=== PATIENT | female | born 1995 | race Two or more races ===

== ENCOUNTER → 2020-10-06 | Outpatient (REF) | payer MEDICAID | LOC: M PLALAB 10:38 | PROVIDERS: ATTEND Obstetrics & Gynecology | DX: Q87.81 Alport syndrome (principal); Z53.9 Procedure and treatment not carried out, unspecified reason ==

== ENCOUNTER → 2020-10-08 | Outpatient (REF) | payer MEDICAID ==
[2020-10-08 14:27] LABS: TOTAL PROTEIN 24 HOUR URINE 805.9 MG/24HR (50-150); URINE TOTAL PROTEIN 39.8 MG/DL (0-12)
== END ==
LOC: M SFHCWAGY 10:03
PROVIDERS: ATTEND Obstetrics & Gynecology
DX: Q87.81 Alport syndrome (principal)

== ENCOUNTER → 2020-10-22 | Outpatient (CLI) | payer MEDICAID ==
--- NOTE | 2020-10-22 10:06 | REP ---
INDICATION: ANATOMY COMPARISON: None. TECHNIQUE: Transabdominal obstetrical ultrasound with color Doppler evaluation. FINDINGS: Examination demonstrates a single live intrauterine in breech presentation. motion is identified by technologist. Placenta is noted posterior and grade 0 without evidence for placenta previa or abruption. Amniotic fluid volume is normal. Cervix measures 3.7 cm in length and appears closed. Myomatous changes to the uterus cannot be excluded.. Gestational age by current measurements 19 weeks 5 days with MATILDE 03/13/2021. FHR equals 155 beats per minute. BPD: 4.3 cm at 19 weeks 0 days HC: 17.1 cm at 19 weeks 5 days AC: 14.2 cm at 19 weeks 4 days FL: 3.0 cm at 19 weeks 3 days HL: 3.2 cm at 20 weeks 6 days HC/AC: 1.20 Estimated weight 296 grams (33rdpercentile). Anatomical assessment demonstrates normal structures including cranium, choroid plexus, cavum, cerebellum/posterior fossa, facial features, lungs, diaphragm, stomach, cord insertion/three-vessel cord, kidneys/bladder, spine, and extremities. IMPRESSION: 1. Single live intrauterine in breech presentation demonstrating appropriate estimated weight. 2. Limited evaluation of the cardiac ventricular outflow tracts including 2 echogenic foci in the left cardiac ventricle may warrant follow-up examination. 3. Myomatous changes to the uterus cannot be excluded. <Electronically signed by Leonides Templeton > 10/22/20 [id number]
== END ==
LOC: M WHC 08:12
PROVIDERS: ATTEND Obstetrics & Gynecology
DX: Z36.89 Encounter for other specified antenatal screening (principal); Z3A.19 19 weeks gestation of pregnancy

== ENCOUNTER → 2020-11-03 | Outpatient (CLI) | payer MEDICAID, OTHER | LOC: M PLALAB 08:34 | PROVIDERS: ATTEND Advanced Practice Midwife | DX: O28.3 Abnormal ultrasonic finding on antenatal screening of mother (principal); O28.5 Abnormal chromosomal and genetic finding on antenatal screening of mother ==

== ENCOUNTER → 2020-11-18 | Outpatient (CLI) | payer MEDICAID, OTHER ==
--- NOTE | 2020-11-18 09:17 | REP ---
INDICATION: F/U ANATOMY. COMPARISON: 10/22/2020. TECHNIQUE: Real-time sonographic evaluation of the gravid uterus performed. FINDINGS: Estimated gestational age is23 weeks 4 days, EDC 03/13/2021. Today's measurements indicate appropriate growth. Presentation: Breech Placenta posterior, grade 1, without evidence of placenta previa. heart rate is recorded at 156 beats per minute. Amniotic fluid is subjectively normal. Closed cervical length is measured at 4.1 cm. Biometry chart: BPD: 56 mm, 23 weeks 1 days, 37th percentile. HC: 216 mm, 23 weeks 5 days, 53rd percentile AC: 201 mm, 24 weeks 5 days, 74th percentile Femur length: 42 mm, 23 weeks 6 days, 56th percentile HC to AC ratio: 1.07, normal range 1.03-1.22. Estimated weight: 671g, 72nd percentile. The four-chamber heart and ventricular outflow tracts are visualized. Two echogenic foci in the left ventricle of the heart are likely related to chordae tendineae. In the anterior uterus a suspected fibroid measures 3.1 x 1.6 x 1.9 cm. IMPRESSION: Viable single intrauterine gestation as above. <Electronically signed by Michele Peacock > 11/18/20 [id number]
== END ==
LOC: M WHC 07:50
PROVIDERS: ATTEND Advanced Practice Midwife
DX: O32.1XX0 Maternal care for breech presentation, not applicable or unspecified (principal); Z36.2 Encounter for other antenatal screening follow-up; Z3A.23 23 weeks gestation of pregnancy

== ENCOUNTER → 2020-12-01 | Outpatient (REF) | payer OTHER ==
[2020-12-01 10:32] LABS: HEMATOCRIT 33.3 % (36.0-47.0); HEMOGLOBIN 10.4 g/dl (12.0-15.5); MEAN CORPUSCULAR HGB CONC 31.2 g/dl (32.0-36.5); MEAN CORPUSCULAR VOLUME 92.8 fl (80.0-96.0); PLATELET COUNT, AUTOMATED 204 10^3/uL (150-450); RED BLOOD COUNT 3.59 10^6/uL (4.00-5.40)
== END ==
LOC: M PLALAB 08:34
PROVIDERS: ATTEND Advanced Practice Midwife
DX: Z36.89 Encounter for other specified antenatal screening (principal); Z3A.00 Weeks of gestation of pregnancy not specified

== ENCOUNTER → 2020-12-05 | Outpatient (CLI) | payer OTHER | LOC: M LAB 08:20 | PROVIDERS: ATTEND Advanced Practice Midwife | DX: O99.810 Abnormal glucose complicating pregnancy (principal); Z3A.00 Weeks of gestation of pregnancy not specified ==

== ENCOUNTER → 2021-02-05 | Outpatient (CLI) | payer OTHER ==
[2021-02-05 11:29] LABS: HEMATOCRIT 34.6 % (36.0-47.0); HEMOGLOBIN 11.5 g/dl (12.0-15.5); MEAN CORPUSCULAR HGB CONC 33.2 g/dl (32.0-36.5); MEAN CORPUSCULAR VOLUME 90.3 fl (80.0-96.0); PLATELET COUNT, AUTOMATED 158 10^3/uL (150-450); RED BLOOD COUNT 3.83 10^6/uL (4.00-5.40); WHITE BLOOD COUNT 5.4 10^3/uL (4.0-10.0)
[2021-02-05 11:55] LABS: URINE TOTAL PROTEIN 122.5 MG/DL (0-12)
[2021-02-05 13:24] LABS: ALT/SGPT 28 U/L (12-78); BILIRUBIN,TOTAL 0.2 MG/DL (0.2-1.0); CREATININE FOR GFR 0.58 MG/DL (0.55-1.30); GLOMERULAR FILTRATION RATE > 60.0 (>60); LDH LACTATE DEHYDROGENASE 158 U/L (84-246); URIC ACID 4.4 MG/DL (2.6-6.0)
[2021-02-05 14:03] LABS: TOTAL PROTEIN 24 HOUR URINE 1592.5 MG/24HR (50-150)
== END ==
LOC: M PLALAB 08:39
PROVIDERS: ATTEND Advanced Practice Midwife
DX: O16.3 Unspecified maternal hypertension, third trimester (principal); Z3A.00 Weeks of gestation of pregnancy not specified

== ENCOUNTER → 2021-02-06 | Outpatient (CLI) | payer OTHER ==
--- NOTE | 2021-02-06 13:51 | REP ---
INDICATION: PREG INCREASED HTN. COMPARISON: Comparison study November 18, 2020.. TECHNIQUE: Transabdominal obstetric sonography. Limited study. FINDINGS: Scanning through the gravid uterus demonstrates a viable single intrauterine gestation in a vertex lie. heart rate is recorded at 142 beats per minute. A posterior fundal grade 1 placenta is seen without evidence of previa. Amniotic fluid is subjectively normal. Closed cervical length measured transabdominally is 3.7 cm. AMY is normal at 14.7 cm. Biophysical profile score is 8 out of a possible 8. SD ratio in the umbilical cord artery by Doppler is normal at 2.61. There is a 3.2 cm anterior myometrial hypoechoic area suggesting a fibroid again seen unchanged. IMPRESSION: Limited obstetric sonography as above. Biophysical profile score 8/8. <Electronically signed by Octavio Joiner > 02/06/21 [id number]
== END ==
LOC: M RAD 13:09
PROVIDERS: ATTEND Advanced Practice Midwife
DX: O13.3 Gestational [pregnancy-induced] hypertension without significant proteinuria, third trimester (principal)

== ENCOUNTER → 2021-02-10 | Outpatient (REF) | payer OTHER | LOC: M SFHCWAGY 17:07 | PROVIDERS: ATTEND Obstetrics & Gynecology | DX: O13.3 Gestational [pregnancy-induced] hypertension without significant proteinuria, third trimester (principal) ==

== ENCOUNTER → 2021-02-10 | Outpatient (CLI) | payer OTHER ==
--- NOTE | 2021-02-10 12:20 | REP ---
INDICATION: BPP/GROWTH/HYPERTENSION. COMPARISON: 02/06/2021. TECHNIQUE: Real-time sonographic evaluation of the gravid uterus performed. FINDINGS: Estimated gestational age is35 weeks 4 days, EDC 03/13/2021. Presentation: Cephalic Placenta posterior, grade 1, without evidence of placenta previa. heart rate is recorded at 133 beats per minute. Amniotic fluid is subjectively normal. AMY 15.6, normal range 7.6-24.9. Biophysical profile score 8/8. SD ratio umbilical artery 1.97, normal range 1.66-3.54. RI 0.49, normal 0.45-0.71. IMPRESSION: Viable single intrauterine gestation as above. <Electronically signed by Michele Peacock > 02/10/21 [id number]
== END ==
LOC: M WHC 10:57
PROVIDERS: ATTEND Advanced Practice Midwife
DX: O13.3 Gestational [pregnancy-induced] hypertension without significant proteinuria, third trimester (principal); Z3A.35 35 weeks gestation of pregnancy

== ENCOUNTER 2021-02-14 18:09 | Emergency (ER) | payer OTHER ==
[~2021-02-14] VITALS: Ht 157.5 cm; Wt 98.6 kg
[2021-02-14 18:09] VITALS: BP 138/80
[2021-02-14 21:09] LABS: BASO % 0.2 % (0.0-1.0); EOS # 0.1 10^3/uL (0.0-0.5); EOS % 1.1 % (0.0-3.0); HEMATOCRIT 33.4 % (36.0-47.0); HEMOGLOBIN 11.2 g/dl (12.0-15.5); LYMPH # 1.3 10^3/uL (1.5-5.0); LYMPH % 20.1 % (24.0-44.0); MEAN CORPUSCULAR HEMOGLOBIN 30.3 pg (27.0-33.0); MEAN CORPUSCULAR HGB CONC 33.5 g/dl (32.0-36.5); MEAN CORPUSCULAR VOLUME 90.3 fl (80.0-96.0); MONO # 0.6 10^3/uL (0.0-0.8); MONO % 9.9 % (2.0-8.0); NEUTROPHILS # 4.4 10^3/uL (1.5-8.5); NEUTROPHILS % 68.2 % (36.0-66.0); PLATELET COUNT, AUTOMATED 174 10^3/uL (150-450); WHITE BLOOD COUNT 6.5 10^3/uL (4.0-10.0)
[2021-02-14 21:31] LABS: ALBUMIN 2.6 GM/DL (3.2-5.2); ALT/SGPT 24 U/L (12-78); BILIRUBIN,TOTAL 0.2 MG/DL (0.2-1.0); BLOOD UREA NITROGEN 11 MG/DL (7-18); CALCIUM LEVEL 9.1 MG/DL (8.5-10.1); CARBON DIOXIDE LEVEL 24 MEQ/L (21-32); CHLORIDE LEVEL 111 MEQ/L (98-107); CPK CREATINE PHOSPHOKINASE 101 U/L (26-192); CREATININE FOR GFR 0.59 MG/DL (0.55-1.30); GLOMERULAR FILTRATION RATE > 60.0 (>60); GLUCOSE, FASTING 90 MG/DL (70-100); POTASSIUM SERUM 4.2 MEQ/L (3.5-5.1); SODIUM LEVEL 142 MEQ/L (136-145); TOTAL PROTEIN 6.3 GM/DL (6.4-8.2)
--- NOTE | 2021-02-14 21:39 | ECGEPIP ---
[facility] - ED Test Date: 2021-02-14 Pat Name: ROSALES COTTON Department: Room: - Gender: Female Cook Starch: : 1995 Requested By: ELVIS VIDES Order Number: [id number] Reading MD: Ginette Alvarez Measurements Intervals [place] Rate: 92 P: 36 KS: 144 QRS: 15 QRSD: 74 T: 18 QT: 336 QTc: 415 Interpretive Statements Normal sinus rhythm Minimal voltage criteria for LVH, may be normal variant ( R in aVL ) No prior Electronically Signed on 02-14-2021 21:39:24 EDT by Ginette Alvarez
== END 2021-02-14 22:38 | disposition home or self-care (01) ==
LOC: M ED 18:09
DX: O26.93 Pregnancy related conditions, unspecified, third trimester (principal); O99.013 Anemia complicating pregnancy, third trimester; Z3A.00 Weeks of gestation of pregnancy not specified

== ENCOUNTER → 2021-02-18 | Outpatient (CLI) | payer OTHER ==
--- NOTE | 2021-02-18 15:58 | REP ---
INDICATION: GROWTH/BPP/HYPERTENSION. COMPARISON: None. TECHNIQUE: Transabdominal scanning FINDINGS: Multiple ultrasonographic images of the gravid uterus shows a single living intrauterine gestation in the cephalic presentation. Doppler interrogation of the heart shows a heart rate of 138 beats per minute. The subjective amniotic fluid volume is within normal limits with a calculated amniotic fluid index is 19.1 within expected range 7.6-24.7. The placenta is posterior not low lying. Secondary to the low position of the head the cervical length could only be estimated at 4.2 cm and appeared closed. Doppler interrogation of the umbilical artery shows an A\B ratio of 1.91 with a 2nd reading of 2.10 both within the normal range. biophysical profile score is 2 for breathing, 2 for movement, 2 for tone, and 2 for amniotic fluid volume giving a sum total of 8/8. BPD: 9.4 cm 38 weeks 3 days AC: 33.6 cm 38 weeks 3 days AC: 35.1 cm 39 weeks 0 day FL: 7.5 cm 38 weeks 1 day The estimated weight is 3555 g which is greater than the 97th percentile for a 36 week 3 day gestational age. IMPRESSION: Limited OB ultrasound as described above showing a single living intrauterine gestation with an estimated gestational age of 38 weeks 1 day via composite criteria and an estimated date of delivery of 03/03/2021 by today's exam. <Electronically signed by Joselito David > 02/18/21 [id number]
== END ==
LOC: M WHC 14:21
PROVIDERS: ATTEND Advanced Practice Midwife
DX: O13.3 Gestational [pregnancy-induced] hypertension without significant proteinuria, third trimester (principal); Z3A.38 38 weeks gestation of pregnancy

== ENCOUNTER 2021-02-22 07:47 | Inpatient (IN) | payer OTHER, SELFPAY ==
[~2021-02-22] VITALS: Ht 157.5 cm; Wt 99.9 kg
[2021-02-22] VITALS (12 sets, daily range): BP systolic 112–130; BP diastolic 56–77
[2021-02-22] MEDS ORDERED: PRENTAB9 PO (08:17)
[2021-02-22] MEDS ORDERED: FERR324T21 PO (08:24)
[2021-02-22] MEDS ORDERED: HOME MED LIST COMPLETE! XX SCH (08:25)
[2021-02-22 09:32] LABS: HEMATOCRIT 33.3 % (36.0-47.0); MEAN CORPUSCULAR HEMOGLOBIN 30.1 pg (27.0-33.0); MEAN CORPUSCULAR VOLUME 91.2 fl (80.0-96.0); PLATELET COUNT, AUTOMATED 159 10^3/uL (150-450); RED BLOOD COUNT 3.65 10^6/uL (4.00-5.40); WHITE BLOOD COUNT 4.9 10^3/uL (4.0-10.0)
[2021-02-22] MEDS: LACTATED RINGER'S 1000 ML IV STA (10:12)
[2021-02-22] MEDS ORDERED: LIDOCAINE 1% MDV 20ML VIAL INFIL PRN (10:15)
[2021-02-22] MEDS ORDERED: OXYTOCIN DRIP 30 UNITS in IV 1 EA IV PRN (10:15)
[2021-02-22] MEDS: LR 1,000 ML IV SCH ×2 (10:15→18:15)
[2021-02-22] MEDS ORDERED: miSOPROStol 50MCG 1/2 TABLET PV ONE (10:20)
[2021-02-22] MEDS ORDERED: BUTORPHANOL 2 MG/ML INJ (J0595) IV PRN (12:35)
[2021-02-22 13:39] LABS: TOTAL PROTEIN,RANDOM URINE 405.7 MG/DL (0.0-12.0)
[2021-02-22] MEDS: miSOPROStol 50MCG 1/2 TABLET PO SCH ×3 (14:30→22:26)
--- NOTE | 2021-02-22 16:50 | HPEPDOC ---
Obstetrical History & Physical General Date of Admission Feb 22, 2021 at 07:47 History of Present Illness Danna is a 25yo with SIUP at 37w0d by lmp presenting for IOL for GHTN. diagnosis was made 02/06 based on mild range bp's in office. She has no complaints. good movement, no vaginal bleeding/LOF/ctx. 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), obesity Surgical History: Denies/None Family History Significant Family History: Other (Alport Syndrome) Social History Marital Status: Family situation: Spouse/partner home Psychosocial History: No pertinent psych hx * Smoker: non-smoker Alcohol: Denies Drugs: denies Imunizations Tdap status: current Allergies Coded Allergies: No Known Allergies (Unverified , 02/22/21) Medications Scheduled No.137/Iron/Folic Acd ( Vitamin Tablet) 1 Each Tablet, 1 TAB PO DAILY Miscellaneous Medications Ferrous Gluconate (Ferrous Gluconate) 324 Mg Tablet, 324 MG PO Physical Examination Physical Examination GENERAL: Alert and oriented times three. ABDOMEN: Gravid and non-tender to touch. Dependent edema of abdomen (pannus) noted FETUS: Is vertex (VTX) by TAUS EXTREMITIES: No edema of BLE Vital Signs/I&O Vital Signs Date Time Temp Pulse Resp B/P (MAP) Pulse Ox O2 Delivery O2 Flow Rate FiO2 02/22/21 15:42 97.9 02/22/21 15:33 96 18 124/77 (93) Room Air Laboratory Data 24H LABS Laboratory Tests 2 02/22/21 09:08: Nucleated Red Blood Cells % (auto) 0.0, Hepatitis B Surface Antigen NEGATIVEL, HIV (1&2) Antibody NEGATIVE, HIV P24 Antigen NEGATIVE 02/22/21 12:50: Urine Random Creatinine 279.0, Urine Random Total Protein 405.7H 02/22/21 13:25: Serology Scanned Report Hepatitis B Testing CBC/BMP Laboratory Tests 02/22/21 09:08 Pertinent Laboratoy Data Blood Type: O+ RBC Antibody Screen: Negative HIV: Negative Hepatitis B: Negative Rapid Plasma Reagin: Nonreactive Rubella: Nonreactive Chlamydia/Gonorrhea: Negative Group B Streptococcus: Negative Glucose Tolerance Test: 140 (3hr 90/162/138/108) Diag/Inter Therapy Sickle cell screen negative, CF screen negative, panorama low risk male Anatomy Ultrasound Ultrasound Date: Nov 18, 2020 Placenta Location: Posterior Normal Anatomy: Yes (EIF noted) Placenta Previa: No Other Ultrasounds Maternal fibroid noted on anatomy f/u 3x2cm Steroid Therapy Steroid Therapy: No Vaginal Examination Dilation: None Effacement: other (0%) Station: -3 Cervical Consistency: Firm Cervical Position: Posterior Presentation: Cephalic presentation (by TAUS) Assessment Heart Rate (FHR): 130 Variability: Moderate Accelerations: Positive Decelerations: None Tocometer Contractions: No Assessment/Plan Assessment Danna is a 25yo with SIUP at 37w0d by lmp presenting for IOL for GHTN. BP is normotensive and other vitals wnl. Exam benign. Cat I FHRT. Cephalic by TAUS. SCE cl/thick/high. GBS negative. PMhx and PNC significant for: GHTN, obesity, trichomonas in 1st trimester treated, transfer in at 17wk from [facility] with records, anemia, Rubella n on-immune, failed 1hr glucola (140) and passed 3hr GTT Plan Admit and orient. Mattress Maker and consent. Diet: regular until active labor Group B Streptococcus (GBS) negative Labs and intravenous (IV) per unit protocol. Include urine prot:creat Counseled on cytotec, adams bulb, Pitocin and induction of labor (IOL). Lactated Ringers (LR): Bolus 800 mL, then at 125 mL/hr prior to epidural if desired Induction begun with 50mcg PV cytotec x1 and will continue q4hr with 50mcg PO cytotec until able to place cervical adams bulb Rosa Avendano MD Feb 22, 2021 16:44
[2021-02-23] VITALS (53 sets, daily range): BP systolic 101–151; BP diastolic 57–91
[2021-02-23] MEDS: miSOPROStol 50MCG 1/2 TABLET PO SCH (02:35)
[2021-02-23] MEDS ORDERED: PROMETHAZINE INJ 25 MG/ML VIAL (J2550) IV ONE (09:10)
[2021-02-23] MEDS ORDERED: OXYTOCIN DRIP 30 UNITS in IV 1 EA IV SCH (09:15)
--- NOTE | 2021-02-23 10:02 | IPNPDOC ---
Obstetrical Progress Note Date of Service Feb 23, 2021 Subjective Patient is feeling her contractions. Objective Vital Signs Date Time Temp Pulse Resp B/P (MAP) Pulse Ox O2 Delivery O2 Flow Rate FiO2 02/23/21 09:26 97.6 82 16 124/74 Room Air Assessment Heart Rate (FHR): 130 Variability: Moderate Accelerations: Positive Decelerations: None Heart Rate Tracing: Category I Tocometer Contractions: Yes Sterile Vaginal Examination Dilation: 4 cm Effacement (%): 50% Station: -2 Cervical Consistency: Soft Cervical Position: Anterior Postion/Presentation: Cephalic presentation Assessment and Plan EGA at Admission: 37 Weeks & Days 37.1 weeks gestation today Status: Reassuring Group B Streptococcus: Negative Anticipate: Vaginal Delivery Additional Comments Mclaughlin bulb placed with the use of Stadol and Phenergan for pain management. 70/40 placed. Tolerated procedure well with pain medication. Will start IV Pitocin. JEFFERY ORDOÑEZ CNM Feb 23, 2021 10:02
[2021-02-23] MEDS: LR 1,000 ML IV SCH ×2 (10:09→10:15)
[2021-02-23 12:16] LABS: HEMATOCRIT 35.6 % (36.0-47.0); HEMOGLOBIN 11.9 g/dl (12.0-15.5); MEAN CORPUSCULAR HEMOGLOBIN 30.2 pg (27.0-33.0); MEAN CORPUSCULAR HGB CONC 33.4 g/dl (32.0-36.5); MEAN CORPUSCULAR VOLUME 90.4 fl (80.0-96.0); PLATELET COUNT, AUTOMATED 161 10^3/uL (150-450); RED BLOOD COUNT 3.94 10^6/uL (4.00-5.40); WHITE BLOOD COUNT 6.7 10^3/uL (4.0-10.0)
[2021-02-23] MEDS ORDERED: FENTANYL 2MCG/ML ROPIVACAINE 0.2% IN 0.9% NACL 100ML IVBAG As Ordered ONE (17:23)
[2021-02-23] MEDS ORDERED: NALOXONE INJ 0.4MG/1ML VIAL (J2310 PER 1MG) IV PRN (18:45)
[2021-02-23] MEDS ORDERED: REFRIGERATOR IV KEYS XX PRN (18:45)
[2021-02-23] MEDS ORDERED: EPIDURAL COMMENT XX SCH (18:45)
[2021-02-23] MEDS ORDERED: diphenhydrAMINE 50MG/ML VIAL (J1200) IV PRN (18:45)
[2021-02-23] MEDS ORDERED: ePHEDrine SULFATE 25 MG/5 ML(5MG/ML) SYRINGE IV PRN (18:45)
[2021-02-23] MEDS ORDERED: ONDANSETRON 4MG/2ML VIAL IV PRN (18:45)
[2021-02-23] MEDS ORDERED: LACTATED RINGER'S 1000 ML IV PRN (18:45)
[2021-02-23] MEDS ORDERED: EPIDURAL/PCA KEYS XX PRN (18:45)
[2021-02-23] MEDS: FENTANYL/ROPIVACAINE/NACL BAG 100 ML EPIDURAL SCH (19:03)
--- NOTE | 2021-02-23 19:21 | IPNPDOC ---
Obstetrical Progress Note Date of Service Feb 23, 2021 Subjective Patient is comfortable with her epidural. Objective Vital Signs Date Time Temp Pulse Resp B/P (MAP) Pulse Ox O2 Delivery O2 Flow Rate FiO2 02/23/21 15:50 109 135/88 (104) 02/23/21 12:10 97.9 16 02/23/21 09:36 Room Air Assessment Heart Rate (FHR): 150 Variability: Moderate Accelerations: Positive Decelerations: None Heart Rate Tracing: Category I Tocometer Contractions: Yes Frequency: regular Sterile Vaginal Examination Dilation: 5 cm Effacement (%): 50% Station: -2 (ballottable between contractions) Cervical Consistency: Soft Cervical Position: Anterior Postion/Presentation: Cephalic presentation Assessment and Plan Age: 25 : 1 Term: 0 Pre-term: 0 Abortions: 0 Livin EGA at Admission: 37 Weeks & Days 37.1 weeks Status: Reassuring Group B Streptococcus: Negative Anticipate: Vaginal Delivery Additional Comments IV Pitocin at 14 mu/min. Mclaughlin bulb out at 1528. Will reevaluate in a few hours if no SROM and consider AROM. JEFFERY ORDOÑEZ CNM Feb 23, 2021 19:21
--- NOTE | 2021-02-23 22:12 | IPNPDOC ---
Obstetrical Progress Note Date of Service Feb 23, 2021 Subjective Patient comfortable with her epidural. Objective Vital Signs Date Time Temp Pulse Resp B/P (MAP) Pulse Ox O2 Delivery O2 Flow Rate FiO2 02/23/21 18:55 101 133/73 (93) 02/23/21 12:10 97.9 16 02/23/21 09:36 Room Air Assessment Heart Rate (FHR): 150 Variability: Moderate Accelerations: Positive Decelerations: None Heart Rate Tracing: Category I Tocometer Contractions: Yes Frequency: regular Sterile Vaginal Examination Dilation: 6 cm Effacement (%): other (75%) Station: -1 Cervical Consistency: Soft Cervical Position: Anterior Postion/Presentation: Cephalic presentation Assessment and Plan Age: 25 Weeks & Days 37.1 weeks gestation Status: Reassuring Group B Streptococcus: Negative Anticipate: Vaginal Delivery Additional Comments AROM to a large amount of clear fluid. IV Pitocin at 16/mu/min. JEFFERY ORDOÑEZ CNM Feb 23, 2021 22:12
[2021-02-24] VITALS (38 sets, daily range): BP systolic 115–162; BP diastolic 58–99
[2021-02-24] MEDS: LR 1,000 ML IV SCH ×5 (01:09→19:30)
[2021-02-24] MEDS ORDERED: FENTANYL 2MCG/ML ROPIVACAINE 0.2% IN 0.9% NACL 100ML IVBAG As Ordered ONE (01:21)
[2021-02-24] MEDS: FENTANYL/ROPIVACAINE/NACL BAG 100 ML EPIDURAL SCH (01:33)
[2021-02-24] MEDS ORDERED: BICITRA 30ML SOLN UDC PO ONE (06:10)
[2021-02-24] MEDS ORDERED: ceFAZolin SOD 2 GM in IV 1 EA IV ONE (06:10)
[2021-02-24] MEDS ORDERED: AZITHROMYCIN INJ 500 MG, VIAL MATE ADAPTER 1 EACH in NS 250 ML IV ONE (06:10)
--- NOTE | 2021-02-24 06:16 | IPNPDOC ---
Obstetrical Progress Note Date of Service Feb 24, 2021 Subjective Patient uncomfortable with her contractions. Objective Vital Signs Date Time Temp Pulse Resp B/P (MAP) Pulse Ox O2 Delivery O2 Flow Rate FiO2 02/24/21 04:27 96 18 129/67 (87) 02/24/21 04:13 98.1 02/23/21 09:36 Room Air Assessment Heart Rate (FHR): 140 Variability: Moderate Accelerations: Positive Decelerations: None Heart Rate Tracing: Category I Tocometer Contractions: Yes Frequency: other (6-10 minutes) Sterile Vaginal Examination Dilation: 6 cm Effacement (%): other (75%) Station: -1 Cervical Consistency: Soft Cervical Position: Anterior Assessment and Plan Status: Reassuring Anticipate: Section Additional Comments No cervical change and no descent since AROM. Reviewed that Dr. Frankel has been notified and his recommendation is for section. Patient agrees with plan and accepting of section. Will proceed with section. JEFFERY ORDOÑEZ CNM Feb 24, 2021 06:16
[2021-02-24 07:07] LABS: HEMATOCRIT 35.6 % (36.0-47.0); HEMOGLOBIN 11.6 g/dl (12.0-15.5); MEAN CORPUSCULAR HEMOGLOBIN 29.6 pg (27.0-33.0); MEAN CORPUSCULAR HGB CONC 32.6 g/dl (32.0-36.5); MEAN CORPUSCULAR VOLUME 90.8 fl (80.0-96.0); PLATELET COUNT, AUTOMATED 167 10^3/uL (150-450); RED BLOOD COUNT 3.92 10^6/uL (4.00-5.40); WHITE BLOOD COUNT 12.2 10^3/uL (4.0-10.0)
[2021-02-24] MEDS ORDERED: NALOXONE INJ 0.4MG/1ML VIAL (J2310 PER 1MG) IV PRN ×2 (08:05)
[2021-02-24] MEDS ORDERED: diphenhydrAMINE 50MG/ML VIAL (J1200) IV PRN (08:05)
[2021-02-24] MEDS ORDERED: ONDANSETRON 4MG/2ML VIAL IV PRN ×3 (08:05→09:45)
[2021-02-24] MEDS ORDERED: METOCLOPRAMIDE INJ 10MG/2ML VIAL (J2765 PER 1) IV PRN (08:05)
[2021-02-24] MEDS ORDERED: NALBUPHINE HCL 10 MG/ML AMP (J2300) IV PRN (08:05)
[2021-02-24] MEDS ORDERED: MORPHINE PRES-FREE INJ 10 MG/10 ML VIAL (J2274) As Ordered ONE (08:15)
[2021-02-24] MEDS ORDERED: KETOROLAC 60MG 2ML VIAL As Ordered ONE (08:15)
[2021-02-24] MEDS ORDERED: dexameTHASONE 4 MG/ML 1ML VIAL (J1100 PER 1MG) As Ordered ONE (08:15)
[2021-02-24] MEDS ORDERED: ONDANSETRON 4MG/2ML VIAL As Ordered ONE (08:15)
[2021-02-24] MEDS ORDERED: METOCLOPRAMIDE INJ 10MG/2ML VIAL (J2765 PER 1) As Ordered ONE (08:15)
[2021-02-24] MEDS ORDERED: OXYTOCIN 30 UNITS IN 0.9% NaCl 500ML IV BAG (J2590) As Ordered ONE ×3 (08:15→09:07)
[2021-02-24] MEDS ORDERED: PHENYLephrine 500MCG 5ML (100MCG/ML) SYRINGE As Ordered ONE (08:15)
[2021-02-24] MEDS ORDERED: ACETAMINOPHEN 1000MG 100ML IV BTL (OFIRMEV) (J0131 PER 10MG) As Ordered ONE (08:40)
--- NOTE | 2021-02-24 09:14 | ROOPDOC ---
[facility] Report Of Operation Report of Operation DATE OF PROCEDURE: 02/24/2021 PREPROCEDURE DIAGNOSES: Arrest of dilation, 37+2 weeks gestation, gestational hypertension POSTPROCEDURE DIAGNOSES: Same PROCEDURE: Primary low transverse section SURGEON: Lloyd Frankel DO FACOG PRINTED CIRCUIT PHOTOGRAPHER: Leana Sahu CNM (Essential role in retraction, extraction, and closure of all tissue layers) ANESTHESIA: Spinal w/ Duramorph ESTIMATED BLOOD LOSS: 600 mL. IV FLUIDS: 1300 mL LR URINE OUTPUT: 300 mL COMPLICATIONS: None. PREOPERATIVE ANTIBIOTICS: Ancef 2g IV x 1, Azithromycin 500mg IV. COMPLICATIONS: none DATA: Apgars 8 and 9. Birthweight 3420 g, 7 lbs 9 oz. SPECIMENS: none PRIMARY INDICATION FOR : Arrest of dilation DESCRIPTION OF PROCEDURE: The patient was counseled on the risks, benefits, indications and alternatives of the procedure. Informed consent was obtained. She was taken to the operating room with IV running and placed on the operating table in the dorsal supine position with a leftward tilt. Regional anesthesia was found to be adequate. Sequential compression devices were placed on the lower extremities. A Mclaughlin catheter was placed under sterile conditions. She was prepared and draped in normal sterile fashion. A time out was performed per protocol. Regional anesthesia was again found to be adequate. A Pfannenstiel skin incision was made with the 10 blade. The 10 blade was used to dissect down to the level of the rectus sheath fascia. The rectus sheath pressure was incised midline and this was extended bilaterally with Peralta scissors , and manual stretch. The rectus muscle bellies were dissected off the rectus sheath fascia superiorly and inferiorly using both sharp and blunt dissection. The midline was identified. The peritoneum was identified and entered digitally. The peritoneal opening was extended with manual stretch. The Mobius retractor was placed. The vesicouterine peritoneum was dissected with Metzenbaum scissors to create the bladder flap. A low transverse uterine incision was made with the 10 blade. This was extended with manual stretch. The amniotic sac was punctured, and clear fluid was noted. The baby delivered through the hysterotomy without difficulty. The Mobius ret ractor was removed from the abdomen. The cord was doubly clamped and cut, and the baby was handed off to awaiting care. data shown above. The placenta was removed manually. The uterus was exteriorized. the intrauterine cavity was cleared of all clot and debris. The hysterotomy was closed with 0 Vicryl in running locked fashion. This was reinforced with a second imbricating layer using 0 Vicryl in running fashion. Excellent hemostasis of the hysterotomy was noted. The pelvis was irrigated and the fluid suctioned. The uterus was replaced back into the abdomen. The peritoneum was closed with 3-0 Vicryl running fashion. The rectus muscle bellies were reapproximated with interrupted stitches using 3-0 Vicryl. The rectus muscles bellies were hemostatic. The rectus sheath fascia was closed with 0 Vicryl running fashion. The subcutaneous layer was irrigated and the f luid suctioned. Small bleeding vessels were cauterized with Bovie. Excellent hemostasis was noted. The subcutaneous layer was reapproximated with 3-0 Vicryl running fashion. Skin was closed with 3-0 Monocryl in subcuticular fashion. An Optifoam bandage was placed over the closed incision. Sponge, needle and instrument counts were correct per protocol throughout the procedure. The patient tolerated the entire procedure very well. She was transferred to the PACU in stable condition. DO TRENTON Moulton JONATHAN R. DO Feb 24, 2021 09:14
[2021-02-24] MEDS ORDERED: OXYTOCIN DRIP 30 UNITS in IV 1 EA IV SCH (09:15)
[2021-02-24] MEDS ORDERED: RHOGAM 300 MCG (1500 IU) INJ (J2790) IM SCH (09:15)
[2021-02-24] MEDS ORDERED: PERCOCET 5MG/325MG TAB PO PRN (09:15)
[2021-02-24] MEDS ORDERED: SIMETHICONE 80MG CHEW TAB PO PRN (09:15)
[2021-02-24] MEDS ORDERED: ACETAMINOPHEN 500 MG TAB PO PRN (09:15)
[2021-02-24] MEDS ORDERED: MEASLES,MUMPS,RUBELLA VACCINE INJ (MMR-II) (90707) SC SCH (09:15)
[2021-02-24] MEDS ORDERED: PERCOCET PO (09:20)
[2021-02-24] MEDS ORDERED: IBUP80TA PO (09:20)
[2021-02-24] MEDS ORDERED: oxyCODONE 5MG TAB PO PRN (09:45)
[2021-02-24] MEDS ORDERED: fentaNYL 100 MCG/2 ML INJECTION (J3010) IV PRN (09:45)
[2021-02-24] MEDS: PRENATAL VITAMINS CHEWABLE TABLET PO SCH (10:49)
[2021-02-24] MEDS: DOCUSATE SODIUM 100MG CAPSULE PO SCH ×2 (10:49→21:02)
[2021-02-24 12:08] LABS: HEMATOCRIT 31.8 % (36.0-47.0); HEMOGLOBIN 10.6 g/dl (12.0-15.5); MEAN CORPUSCULAR HEMOGLOBIN 30.5 pg (27.0-33.0); MEAN CORPUSCULAR HGB CONC 33.3 g/dl (32.0-36.5); MEAN CORPUSCULAR VOLUME 91.4 fl (80.0-96.0); PLATELET COUNT, AUTOMATED 160 10^3/uL (150-450); RED BLOOD COUNT 3.48 10^6/uL (4.00-5.40); WHITE BLOOD COUNT 12.5 10^3/uL (4.0-10.0)
[2021-02-24 12:26] LABS: CREATININE FOR GFR 1.05 MG/DL (0.55-1.30); GLOMERULAR FILTRATION RATE > 60.0 (>60)
[2021-02-24] MEDS: KETOROLAC 30 MG/ML 1ML VIAL IV SCH ×2 (15:49→21:03)
[2021-02-24] MEDS: ENOXAPARIN 40MG/0.4ML SYRINGE (J1650 PER 10MG) SC SCH (15:50)
[2021-02-25] MEDS: KETOROLAC 30 MG/ML 1ML VIAL IV SCH (01:57)
[2021-02-25 02:00] VITALS: BP 116/63
[2021-02-25 06:00] VITALS: BP 118/69
[2021-02-25 07:39] LABS: HEMATOCRIT 28.6 % (36.0-47.0); HEMOGLOBIN 9.4 g/dl (12.0-15.5); MEAN CORPUSCULAR HEMOGLOBIN 30.1 pg (27.0-33.0); MEAN CORPUSCULAR HGB CONC 32.9 g/dl (32.0-36.5); MEAN CORPUSCULAR VOLUME 91.7 fl (80.0-96.0); PLATELET COUNT, AUTOMATED 154 10^3/uL (150-450); RED BLOOD COUNT 3.12 10^6/uL (4.00-5.40); WHITE BLOOD COUNT 12.1 10^3/uL (4.0-10.0)
[2021-02-25] MEDS: PERCOCET 5MG/325MG TAB PO PRN ×2 (08:06→20:13)
[2021-02-25] MEDS: DOCUSATE SODIUM 100MG CAPSULE PO SCH (08:06)
[2021-02-25] MEDS: PRENATAL VITAMINS CHEWABLE TABLET PO SCH (08:06)
[2021-02-25] MEDS ORDERED: DOCUSATE SODIUM 100MG CAPSULE PO PRN (08:35)
--- NOTE | 2021-02-25 08:35 | IPNPDOC ---
Progress Note Date of Service: Feb 25, 2021 Day#: 1 Progress Note SUBJECT: Status post PLTCS She has been ambulating, voiding spontaneously without issue and tolerating regular diet. Lochia decreasing/minimal. Pain is well-controlled. Incision bandage is clean/unsaturated. Denies headache, visual changes, right upper quadrant pain, shortness of breath or chest pain. OBJECTIVE: VITAL SIGNS: Within normal limits, afebrile. Alert and oriented times three. Abdomen: Fundus firm at U-2. Soft, NTTP. Incision bandage not soaked through ASSESSMENT: Status post uncomplicated PLTCS. Vitals within normal limits, afebrile, hemodynamically stable with no evidence of infection. PLAN: Discharge to home tomorrow Routine /postoperative advancement Postoperative instructions/precautions reviewed. Routine PP visit at 2 and 6 weeks in clinic. VS, I&O, 24H, Fishbone Vital Signs/I&O Vital Signs Date Time Temp Pulse Resp B/P (MAP) Pulse Ox O2 Delivery O2 Flow Rate FiO2 02/25/21 08:06 16 02/25/21 06:00 97.4 82 118/69 (85) 96 Room Air I&O- Last 24 Hours up to 6 AM 02/25/21 06:00 Intake Total 2978 ml Output Total 1600 ml Balance 1378 ml Laboratory Data 24H LABS Laboratory Tests 2 02/24/21 11:44: Nucleated Red Blood Cells % (auto) 0.0, Glomerular Filtration Rate > 60.0 02/25/21 07:13: Nucleated Red Blood Cells % (auto) 0.0 CBC/BMP Laboratory Tests 02/24/21 11:44 02/25/21 07:13 BRADLEY PEPE DO Feb 25, 2021 08:35
[2021-02-25] MEDS ORDERED: DOK1CAP4 PO (08:36)
[2021-02-25] MEDS: LR 1,000 ML IV SCH ×2 (09:15→16:58)
[2021-02-25 10:00] VITALS: BP 141/78
[2021-02-25] MEDS: IBUPROFEN 800 MG TAB PO SCH ×2 (11:22→18:21)
[2021-02-25 14:00] VITALS: BP 144/70
[2021-02-25] MEDS: ENOXAPARIN 40MG/0.4ML SYRINGE (J1650 PER 10MG) SC SCH (15:55)
[2021-02-25 18:00] VITALS: BP 120/67
[2021-02-25 22:00] VITALS: BP 126/73
[2021-02-26] MEDS: PERCOCET 5MG/325MG TAB PO PRN (01:07)
[2021-02-26] MEDS: LR 1,000 ML IV SCH ×2 (01:15→09:15)
[2021-02-26] MEDS: IBUPROFEN 800 MG TAB PO SCH ×2 (03:09→11:00)
[2021-02-26 06:00] VITALS: BP 110/64
--- NOTE | 2021-02-26 07:28 | DSES ---
DISCHARGE SUMMARY DATE OF ADMISSION: 02/22/2021 DATE OF DISCHARGE: 02/26/2021 DISCHARGE DIAGNOSIS: 1. Primary section postop day #2, stable for discharge. 2. Gestational hypertension, resolving. SURGEON: BRADLEY FRANKEL DO CUSTOMER OPERATIONS SPECIALIST: JEFFERY ORDOÑEZ CNM HISTORY: Danna is a 25-year-old 1 para 1-0-0-1 now who underwent a primary section on 02/24/2021 due to arrest of dilation following induction of labor for gestational hypertension. The surgery was uncomplicated. Estimated blood loss 600 ml. She delivered a live male, 7 pounds, 9 ounces, 3420 grams, Apgars were 8 and 9. Her postoperative course has been uncomplicated. She has been out of bed for self-care, edgar-care and infant care. She is tolerating p.o. fluids and a regular diet, voiding without difficulty and passing flatus. Her pain has been well-managed with p.o. pain medications. She is ready for discharge. OBJECTIVE: Temperature is 97.5, pulse is 85, respirations 18, BP 110/64. She is alert and oriented x3. CBC preoperatively on date of admission, 02/22/2021: Hemoglobin 11.0, hematocrit 33.3, and platelets 159,000. Postoperative CBC on 02/25/2021: Hemoglobin 9.4, hematocrit 28.6, platelets 154,000. She is alert and oriented x3. Breasts are soft and nontender. Fundus is firm at umbilicus. The incision is with Optifoam dressing in place. There is no drainage observed. The perineum is intact with lochia rubra scant. Bilateral lower extremities with +1 pitting edema. PLAN: Discharge the patient home. She is to follow-up at [facility] for a one week blood pressure check, a two week incision check and an eight week visit. E-prescriptions have been prescribed by Bradley Frankel to the patient's pharmacy for Ibuprofen and Percocet. I reviewed discharge instructions and provided written information regarding breast care, incision care, edgar-care, pelvic rest, activity and lifting restrictions, danger signs to report and access to her are provider. The patient and her family's questions have been answered and she desires discharge home.
[2021-02-26] MEDS: PRENATAL VITAMINS CHEWABLE TABLET PO SCH (09:24)
== END 2021-02-26 11:30 | disposition home or self-care (01) | DRG 540 ==
LOC: M LDI 07:47 → M OBS 02-24 10:35
PROVIDERS: ADMIT Obstetrics & Gynecology; ATTEND Obstetrics & Gynecology
PROC: 3E033VJ Introduction of Other Hormone into Peripheral Vein, Percutaneous Approach (ICD-10-PCS; 2021-02-22)
PROC: 10907ZC Drainage of Amniotic Fluid, Therapeutic from Products of Conception, Via Natural or Artificial Opening (ICD-10-PCS; 2021-02-23)
PROC: 10D00Z1 Extraction of Products of Conception, Low, Open Approach (ICD-10-PCS; principal; 2021-02-24 07:03)
DX: O13.4 Gestational [pregnancy-induced] hypertension without significant proteinuria, complicating childbirth (principal); Z3A.37 37 weeks gestation of pregnancy; Z37.0 Single live birth; O99.214 Obesity complicating childbirth; E66.9 Obesity, unspecified; O62.0 Primary inadequate contractions

== ENCOUNTER → 2021-10-22 | Outpatient (REF) | payer OTHER, MEDICAID ==
[~2021-10-22] MED LIST: DOK1CAP4 PO; FERR324T21 PO; IBUP80TA PO; PERCOCET PO; PRENTAB9 PO
== END ==
LOC: M LAB REF 16:49
PROVIDERS: ATTEND Internal Medicine Nephrology
DX: N39.0 Urinary tract infection, site not specified (principal)

== ENCOUNTER → 2022-01-08 | Outpatient (CLI) | payer MEDICAID | LOC: M RAD 12:13 | PROVIDERS: ATTEND Internal Medicine Nephrology | DX: N18.2 Chronic kidney disease, stage 2 (mild) (principal); N28.1 Cyst of kidney, acquired ==